=== PATIENT | male | born 1970 | race Caucasian/White ===

== ENCOUNTER → 2021-04-16 15:44 | Outpatient (BNVA) | payer MEDICAID, SELFPAY | PROVIDERS: PCP Internal Medicine; Visit Provider Anesthesiology | DX: M51.36 Other intervertebral disc degeneration, lumbar region (principal); G89.3 Neoplasm related pain (acute) (chronic); G89.4 Chronic pain syndrome; G89.28 Other chronic postprocedural pain; C18.9 Malignant neoplasm of colon, unspecified; C80.1 Malignant (primary) neoplasm, unspecified | CPT/HCPCS: 99212 ==